=== PATIENT | female | born 1990 | race Caucasian/White ===

== ENCOUNTER → 2021-02-05 | Outpatient (CLI) | payer OTHER ==
--- NOTE | 2021-02-05 16:38 | US ---
EXAMINATION TYPE: Transabdominal DATE OF EXAM: 02/05/2021 3:09 PM COMPARISON: NONE CLINICAL HISTORY: Z36 confirm dates. EXAM PERFORMED: Transabdominal (TA) EXAM MEASUREMENTS: GESTATIONAL AGE / DATING Physician Established: Not yet established Dates by LMP (13 weeks/3 days) EDC: 08/10/2021 Dates by First Scan: No previous this is first scan Dates by Current Scan for (12 weeks/6 days) EDC: 08/14/2021 MATERNAL ANATOMY Uterus: 13.0 x 10.2 x 9.1 cm Right Ovary: 2.5 x 2.1 x 2.0 cm Left Ovary: 2.7 x 1.1 x 2.0 cm Post CDS / Adnexa: wnl Presence of free fluid: no Presence of corpus luteal cyst: yes, right ovary measuring 1.8 x 1.5 x 1.3 cm Presence of subchorionic bleed: no GESTATION / SURVEY CRL: 6.5 cm (12 weeks/6 days) Heart Rate: 166 bpm Rhythm: Normal IUP: Viable IUP Age Appropriate Anatomy Limbs: Visualized Date of LMP: 11/03/2020 Beta HcG (if available): Not available at this time Viable IUP with STEPHEN of 08/14/2021 by this exam. Cyst right ovary measuring 1.8 x 1.5 x 1.3 cm IMPRESSION: Single intrauterine with an average ultrasound gestational age of 12 weeks and 6 days. Last nodule. Gestational age is 13 weeks and 3 days. heart rate is 166 bpm. [place]-rump length is 6. 5 cm. There is a right corpus luteum cyst measuring 1.8 cm.
== END | disposition home or self-care (01) ==
LOC: RADUSWWP 14:51
PROVIDERS: ATTEND Obstetrics & Gynecology
DX: Z36.89 Encounter for other specified antenatal screening (principal); O36.8310 Maternal care for abnormalities of the fetal heart rate or rhythm, first trimester, not applicable or unspecified; Z3A.13 13 weeks gestation of pregnancy
CPT/HCPCS: 76801

== ENCOUNTER 2021-07-02 10:04 | Outpatient (CLI) | payer OTHER ==
[2021-07-02 11:18] LABS: Basophils # (A) 0.1 k/uL (0-0.2); Basophils % (A) 1 %; Eosinophils # (A) 0.2 k/uL (0-0.7); Eosinophils % (A) 2 %; HCT 38.9 % (34.0-46.0); HGB 12.5 gm/dL (11.4-16.0); Lymphocytes # (A) 1.2 k/uL (1.0-4.8); Lymphocytes % (A) 14 %; MCH 28.5 pg (25.0-35.0); MCHC 32.2 g/dL (31.0-37.0); MCV 88.6 fL (80.0-100.0); Mean Platelet Volume 7.2; Monocytes # (A) 0.7 k/uL (0-1.0); Monocytes % (A) 8 %; Neutrophils # (A) 6.3 k/uL (1.3-7.7); Neutrophils % (A) 73 %; Platelet Count 337 k/uL (150-450); RBC 4.39 m/uL (3.80-5.40); RDW 13.5 % (11.5-15.5); WBC 8.7 k/uL (3.8-10.6)
[2021-07-02 11:23] LABS: Appearance,Urine Clear (Clear); Bilirubin,Urine Negative (Negative); Blood,Urine Negative (Negative); Color,Urine Light Yellow; Glucose,Urine (UA) Negative (Negative); Ketones,Urine Negative (Negative); Leukocyte Esterase,Urine Negative (Negative); Nitrite,Urine Negative (Negative); PH, Urine 7.5 (5.0-8.0); Protein,Urine Negative (Negative); Specific Gravity,Urine 1.009 (1.001-1.035); Urobilinogen,Urine <2.0 mg/dL (<2.0)
[2021-07-02 11:33] LABS: Creatinine,Urine Random 51.3 mg/dL; Protein/Creatinine Ratio,Urine 0.195
[2021-07-02 11:34] LABS: ALT 15 U/L (4-34); AST 20 U/L (14-36); African American GFR (CKD) >90 (>60 ml/min/1.73 sqM); Blood Urea Nitrogen 4 mg/dL (7-17); LDH 409 U/L (313-618); Non-African American GFR(CKD) >90 (>60 ml/min/1.73 sqM); Uric Acid 3.2 mg/dL (3.7-7.4)
[2021-07-02 12:04] VITALS: BP 160/69; PULSE 96; RESP 18; TEMP 97
--- NOTE | 2021-07-14 07:20 | P.MSEPDOC ---
Presenting Problems - Arrival Data Date of Arrival on Unit: 07/02/21 Time of Arrival on Unit: 10:00 Mode of Transport: Ambulatory - Complaint OB-Reason for Admission/Chief Complaint: NST Medical History - Information : 4 Para: 2 Term: 2 : 0 Abortions: Spontaneous or Elective: 1 Number of Living Children: 2 - Gestational Age Gestational Age by STEPHEN (wks/days): 34 Weeks and 3 Days - History Comment: pt is covid positive Review of Systems - Review of Systems Constitutional: No problems Breast: No problems ENT: No problems Cardiovascular: No problems Respiratory: No problems Gastrointestinal: No problems Genitourinary: No problems Musculoskeletal: No problems Neurological: No problems Skin: No problems Vital Signs - Temperature Temperature: 97.0 F Temperature Source: Temporal Artery Scan - Pulse Right Brachial Pulse Rate: 96 Pulse Assessment Method: Automatic Cuff - Respirations Respiratory Rate: 18 Oxygen Delivery Method: Room Air - Blood Pressure Right Arm Blood Pressure: 160/69 Blood Pressure Mean: 99 Blood Pressure Source: Automatic Cuff Medical Screen Scoring - Assessment - Baby A Baseline FHR: 145 Heart Rate - NICHD Category: Category I (Normal) NST: Reactive Physician Notification - Physician Notified Physician Notified Date: 07/02/21 Physician Notified Time: 11:50 Physician: Sil Marie New Order Received: Yes - Notification Comment Comment: PIH labs done, report given to Dr. Marie, orders to discharge home, will follow up on Monday for BPP and NST Maternal Triage Index - Maternal Triage Index Presenting for scheduled procedure w/no complaint: Yes - Stat/Priority 1 Criteria Met for Priority 1: pt presented for NST, but had elevated bp's, orders for PIH workup given, pt is 34 3/7 ga, no PIH symptoms - Scheduled/Requesting Priority 5 Scheduled/Requesting Priority 5: No Disposition - Disposition OB Disposition: Triage, LDRP Suite, Written follow up instructions reviewed Discharge Date: 07/02/21 Discharge Time: 11:54 I agree with the RN Medical Screening Exam: Yes Case reviewed; plan agreed upon as documented in EMR&OBIX.: Yes Diagnosis: GESTATIONAL HTN W/O SIGNIFICANT PROTEINURIA, THIRD TRIMESTER
== END 2021-07-02 11:54 | disposition home or self-care (01) ==
LOC: FBPOP 10:04
PROVIDERS: ATTEND Obstetrics & Gynecology
DX: Z36.83 Encounter for fetal screening for congenital cardiac abnormalities (principal)
CPT/HCPCS: 59025; 82570; 84156; 82565; 83615; 84450; 84460; 84520; 84550; 85025; 81003; G0463; 99215

== ENCOUNTER 2021-07-05 10:05 | Outpatient (CLI) | payer OTHER ==
--- NOTE | 2021-07-05 10:59 | US ---
EXAMINATION TYPE: US OB BPP wo non-stress DATE OF EXAM: 07/05/2021 COMPARISON: CLINICAL HISTORY: Small for gestation. EXAM PERFORMED: Transabdominal (TA) BPP PARAMETERS: PRESENTATION: Vertex HEART RATE: 158 bpm RHYTHM: Normal PRUDENCIO: 13.4cm DIAPHRAGM IMAGED: yes BPP SCORIN. Breathin (1 episode of breathing of 30 second duration in 30 minutes of scanning time) 2. Movement: 2 (at least 3 discrete body movements in 30 minutes) 3. Tone: 2 (1 episode of active flexion/extension of limb) 4. PRUDENCIO: 2 (PRUDENCIO index > 5cm) TOTAL SCORE: 8 / 8
[2021-07-05 11:23] VITALS: BP 124/78; PULSE 80; RESP 18; TEMP 96.4
--- NOTE | 2021-07-05 18:56 | P.MSEPDOC ---
Presenting Problems - Arrival Data Date of Arrival on Unit: 07/05/21 Time of Arrival on Unit: 10:10 Mode of Transport: Portable - Complaint OB-Reason for Admission/Chief Complaint: NST Comment: NST and BPP, covid + Medical History - Information : 4 Para: 2 Term: 2 : 0 Abortions: Spontaneous or Elective: 1 Number of Living Children: 2 - Gestational Age Gestational Age by STEPHEN (wks/days): 34 Weeks and 6 Days - History Complications: Prior Comment: Covid + 07/02/2021 Review of Systems - Review of Systems Constitutional: No problems Breast: No problems ENT: No problems Cardiovascular: No problems Respiratory: No problems Gastrointestinal: No problems Genitourinary: No problems Musculoskeletal: No problems Neurological: No problems Skin: No problems Comment: Loss of taste and smell Vital Signs - Temperature Temperature: 96.4 F Temperature Source: Temporal Artery Scan - Pulse Right Sitting Brachial Pulse Rate: 80 Pulse Assessment Method: Automatic Cuff - Respirations Respiratory Rate: 18 Oxygen Delivery Method: Room Air O2 Sat by Pulse Oximetry: 98 - Blood Pressure Right Arm Sitting Blood Pressure: 124/78 Blood Pressure Mean: 93 Blood Pressure Source: Automatic Cuff Medical Screen Scoring - Assessment - Baby A Baseline FHR: 140 Heart Rate - NICHD Category: Category I (Normal) NST: Reactive Physician Notification - Physician Notified Physician Notified Date: 07/05/21 Physician Notified Time: 11:15 Physician: Henry Morrison New Order Received: Yes - Notification Comment Comment: ok to dc home. Return monday for NST/BPP. Maternal Triage Index - Maternal Triage Index Presenting for scheduled procedure w/no complaint: Yes - Scheduled/Requesting Priority 5 Scheduled/Requesting Priority 5: Yes Criteria Met for Priority 5: NST/BPP with order per Esperanza Powers + Disposition - Disposition OB Disposition: Discharge to home Discharge Date: 07/05/21 Discharge Time: 11:20 I agree with the RN Medical Screening Exam: Yes Case reviewed; plan agreed upon as documented in EMR&OBIX.: Yes Diagnosis: RELATED CONDITIONS, UNSPECIFIED, THIRD TRIMESTER
== END 2021-07-05 11:20 | disposition home or self-care (01) ==
LOC: FBPOP 10:05
PROVIDERS: ATTEND Obstetrics & Gynecology
DX: O26.93 Pregnancy related conditions, unspecified, third trimester (principal); Z3A.34 34 weeks gestation of pregnancy
CPT/HCPCS: 59025; 76819

== ENCOUNTER 2021-07-09 10:09 | Outpatient (CLI) | payer OTHER ==
--- NOTE | 2021-07-10 09:08 | P.MSEPDOC ---
Presenting Problems - Arrival Data Date of Arrival on Unit: 07/09/21 Time of Arrival on Unit: 10:09 Mode of Transport: Ambulatory - Complaint OB-Reason for Admission/Chief Complaint: NST Comment: pt presents to triage for nst per written order by Dr. Morrison, pt was positive for covid on 06/30/21, Medical History - Gestational Age Gestational Age by STEPHEN (wks/days): 35 Weeks and 3 Days - History Complications: Prior Review of Systems - Review of Systems Constitutional: No problems Breast: No problems ENT: No problems Cardiovascular: No problems Respiratory: No problems Gastrointestinal: No problems Genitourinary: No problems Musculoskeletal: No problems Neurological: No problems Skin: No problems Medical Screen Scoring - Assessment - Baby A Baseline FHR: 150 Heart Rate - NICHD Category: Category I (Normal) NST: Reactive Physician Notification - Physician Notified Physician Notified Date: 07/09/21 Physician Notified Time: 11:05 Physician: Ryan Dick Order Received: Yes Maternal Triage Index - Maternal Triage Index Presenting for scheduled procedure w/no complaint: Yes - Scheduled/Requesting Priority 5 Scheduled/Requesting Priority 5: Yes Criteria Met for Priority 5: pt 35 4/7 week ga, had written orders for nst per Dr. Morrison Disposition - Disposition OB Disposition: Triage, Discharge to home, Written follow up instructions reviewed Discharge Date: 07/09/21 Discharge Time: 11:05 I agree with the RN Medical Screening Exam: Yes Case reviewed; plan agreed upon as documented in EMR&OBIX.: Yes Diagnosis: RELATED CONDITIONS, UNSPECIFIED, SECOND TRIMESTER
== END 2021-07-09 11:05 | disposition home or self-care (01) ==
LOC: FBPOP 10:09
PROVIDERS: ATTEND Obstetrics & Gynecology
DX: O26.90 Pregnancy related conditions, unspecified, unspecified trimester (principal); Z3A.35 35 weeks gestation of pregnancy
CPT/HCPCS: 59025

== ENCOUNTER 2021-07-12 09:55 | Outpatient (CLI) | payer OTHER ==
[2021-07-12 10:56] LABS: Appearance,Urine Cloudy (Clear); Bacteria,Urine Moderate /hpf; Bilirubin,Urine Negative (Negative); Blood,Urine Negative (Negative); Color,Urine Yellow; Glucose,Urine (UA) Negative (Negative); Ketones,Urine Negative (Negative); Leukocyte Esterase,Urine Small (Negative); Mucus,Urine Moderate /hpf; Nitrite,Urine Negative (Negative); Protein,Urine Trace (Negative); Specific Gravity,Urine 1.024 (1.001-1.035); Squamous Epithelial Cell,Urine 5 /hpf (0-4); Urobilinogen,Urine <2.0 mg/dL (<2.0); WBC,Urine 15 /hpf (0-5)
[2021-07-12 10:57] LABS: Basophils % (A) 0 %; Eosinophils # (A) 0.1 k/uL (0-0.7); Eosinophils % (A) 1 %; HCT 35.9 % (34.0-46.0); HGB 12.2 gm/dL (11.4-16.0); Lymphocytes # (A) 1.6 k/uL (1.0-4.8); Lymphocytes % (A) 14 %; MCH 29.5 pg (25.0-35.0); MCV 86.6 fL (80.0-100.0); Mean Platelet Volume 7.2; Monocytes # (A) 0.8 k/uL (0-1.0); Monocytes % (A) 7 %; Neutrophils # (A) 8.9 k/uL (1.3-7.7); Neutrophils % (A) 77 %; Platelet Count 421 k/uL (150-450); RBC 4.15 m/uL (3.80-5.40); RDW 13.8 % (11.5-15.5); WBC 11.6 k/uL (3.8-10.6)
[2021-07-12 10:58] LABS: Creatinine,Urine Random 166.9 mg/dL
[2021-07-12 11:08] LABS: INR 0.9 (<1.2); Partial Thromboplastin Time 22.3 sec (22.0-30.0); Prothrombin Time 9.8 sec (9.0-12.0)
[2021-07-12 11:11] LABS: ALT 11 U/L (4-34); AST 16 U/L (14-36); African American GFR (CKD) >90 (>60 ml/min/1.73 sqM); Blood Urea Nitrogen 5 mg/dL (7-17); LDH 322 U/L (313-618); Non-African American GFR(CKD) >90 (>60 ml/min/1.73 sqM); Uric Acid 3.3 mg/dL (3.7-7.4)
--- NOTE | 2021-07-12 11:52 | US ---
EXAMINATION TYPE: US OB >= 14 wk fetus DATE OF EXAM: 07/12/2021 COMPARISON: None CLINICAL HISTORY: prudencio/growth, maternal high bp TECHNIQUE: OBTA GESTATIONAL AGE / DATING Physician Established: ( 35 weeks/6 days) EDC: 08/10/2021 Dates by LMP: (35 weeks/6 days) EDC: 08/10/2021 Dates by First Scan: (35weeks/2 days) EDC: 08/14/2021 Dates by Current Scan: (33 weeks/3 days) EDC: 08/27/2021 SURVEY IUP: Single PLACENTA: Fundal PREVIA: No Previa PRUDENCIO: 18.7 cm Normal CERVICAL LENGTH (transabdominal: norm > 3.0cm): shadowed from baby head and nondistended bladder BIOMETRY PRESENTATION: Vertex LIE: Longitudinal BPD: 8.4 cm 34 weeks / 0 days HC: 31.2 cm 35 weeks / 0 days AC: 26.9 cm 31 weeks / 1 days FL: 6.5 cm 33 weeks / 3 days ESTIMATED WEIGHT IN GRAMS: 1966 grams ESTIMATED WEIGHT IN LBS/OZ: 4 lbs. 5 oz. WEIGHT PERCENTAGE BASED ON ESTABLISHED DATES: 2% HC/AC: 1.1 Normal FL/AC: 24 Normal HEART RATE: 149 bpm RHYTHM: Normal Survey is limited. IMPRESSION: Single viable intrauterine corresponding to an ultrasound age 33 weeks 3 days with estimate d date of delivery by today's exam 08/27/2021
--- NOTE | 2021-07-12 11:55 | US ---
EXAMINATION TYPE: US OB BPP wo non-stress DATE OF EXAM: 07/12/2021 COMPARISON: NONE CLINICAL HISTORY: prudencio/growth. maternal high bp EXAM PERFORMED: Transabdominal (TA) BPP PARAMETERS: PRESENTATION: Vertex LIE: Longitudinal?? HEART RATE: 158bpm RHYTHM: Normal PRUDENCIO: 17.1 DIAPHRAGM IMAGED: yes BPP SCORIN. Breathin (1 episode of breathing of 30 second duration in 30 minutes of scanning time) 2. Movement: 2 (at least 3 discrete body movements in 30 minutes) 3. Tone: 2 (1 episode of active flexion/extension of limb) 4. PRUDENCIO: 2 (PRUDENCIO index > 5cm) TOTAL SCORE: 8 / 8
[2021-07-12 12:40] VITALS: BP 138/78; PULSE 99; RESP 16; TEMP 98.7
--- NOTE | 2021-07-13 06:17 | P.MSEPDOC ---
Presenting Problems - Arrival Data Date of Arrival on Unit: 07/12/21 Time of Arrival on Unit: 10:15 Mode of Transport: Ambulatory - Complaint OB-Reason for Admission/Chief Complaint: NST, PIH, Other Comment: small for dates , history of covid oct Medical History - Information : 3 Para: 2 Term: 2 : 0 Abortions: Spontaneous or Elective: 0 Number of Living Children: 2 - Gestational Age Gestational Age by STEPHEN (wks/days): 35 Weeks and 6 Days Review of Systems - Review of Systems Constitutional: No problems Breast: No problems ENT: No problems Cardiovascular: No problems Respiratory: No problems Gastrointestinal: No problems Genitourinary: No problems Musculoskeletal: No problems Neurological: No problems Skin: No problems Comment: sent from office with orders Vital Signs - Temperature Temperature: 98.7 F Temperature Source: Temporal Artery Scan - Pulse Right Radial Pulse Rate: 99 Pulse Assessment Method: Automatic Cuff - Respirations Respiratory Rate: 16 Oxygen Delivery Method: Room Air O2 Sat by Pulse Oximetry: 99 - Blood Pressure Right Arm Blood Pressure: 138/78 Blood Pressure Mean: 98 Blood Pressure Source: Automatic Cuff Medical Screen Scoring - Assessment - Baby A Baseline FHR: 145 Heart Rate - NICHD Category: Category I (Normal) Physician Notification - Physician Notified Physician Notified Date: 07/12/21 Physician Notified Time: 10:15 Physician: Henry Morrison Maternal Triage Index - Scheduled/Requesting Priority 5 Scheduled/Requesting Priority 5: Yes Criteria Met for Priority 5: bpp,u/s ,nst, pih work up sent from office Disposition - Disposition OB Disposition: Discharge to home, Written follow up instructions reviewed Discharge Date: 07/12/21 Discharge Time: 12:00 I agree with the RN Medical Screening Exam: Yes Case reviewed; plan agreed upon as documented in EMR&OBIX.: Yes Diagnosis: GESTATIONAL HTN W/O SIGNIFICANT PROTEINURIA, THIRD TRIMESTER (Patient presents from the office for evaluation of gestational hypertension. Evaluation here shows no evidence of reproducible hypertension. No evidence of preeclampsia. Patient's baby is at the 2nd percentile and I did discuss with maternal- medicine and will see her in the morning for umbilical Dopplers and further evaluation.)
== END 2021-07-12 12:00 | disposition home or self-care (01) ==
LOC: FBPOP 09:55
PROVIDERS: ATTEND Obstetrics & Gynecology
DX: O13.3 Gestational [pregnancy-induced] hypertension without significant proteinuria, third trimester (principal); Z3A.35 35 weeks gestation of pregnancy
CPT/HCPCS: 59025; 82570; 84156; 82565; 83615; 84450; 84460; 84520; 84550; 85025; 85610; 85730; 81001; 76805; 76819; G0463; 99215

== ENCOUNTER 2021-07-21 05:45 | Inpatient (IN) | payer OTHER ==
--- NOTE | 2021-07-20 06:56 | P.HPOB ---
History of Present Illness H&P Date: 07/20/21 Chief Complaint: Repeat and tubal ligation for intrauterine growth restriction This patient is a pleasant 31-year-old 4 para 2 female estimated date of confinement 08/10/2021 estimated gestational age 37 weeks who presents for repeat section and also requesting permanent sterilization. Patient is being delivered at 37 weeks secondary to severe IUGR. Patient's care is such that she has a history of IUGR with her last . Patient's had growth ultrasounds this and an earlier ultrasound showed a growth percentile the 14th percentile subsequent follow-up ultrasound showed her to be at the 2nd percentile at which time I referred her to [facility] again and there are ultrasound showed at the 5th percentile with normal Dopplers and they recommended to proceed with delivery at 37 weeks. A she has had a previous section for IUGR and a triple nuchal cord and has requested repeat also wishes to have a tubal ligation the time of the surgery. She also has a benign in her thigh skin lesion which she wishes to have removed at the time of surgery as well. care has also been complicated by the development of COVID at approximately 36 weeks. Patient was vaccinated and did not have any symptoms from her COVID. Review of Systems Genitourinary: Reports Menstruation: Reports amenorrhea Past Medical History Past Medical History: No Reported History History of Any Multi-Drug Resistant Organisms: None Reported Past Surgical History: Section Additional Past Surgical History / Comment(s): Nose surgery- 1991 Past Anesthesia/Blood Transfusion Reactions: No Reported Reaction Past Psychological History: No Psychological Hx Reported Smoking Status: Never smoker Past Alcohol Use History: None Reported Past Drug Use History: None Reported - Past Family History Mother Family Medical History: No Reported History Medications and Allergies Home Medications Medication Instructions Recorded Confirmed Type Pnv,Calcium 72/Iron/Folic Acid 1 tab PO DAILY 08/11/16 07/12/21 History [ Plus Tablet] Allergies Allergy/AdvReac Type Severity Reaction Status Date / Time No Known Allergies Allergy Verified 07/12/21 10:05 Exam - OBG Physical Exam Abdomen: bowel sounds normal, no diffuse tenderness, no bruit present, no guarding noted, no hepatomegaly, no splenomegaly, no mass Vulva: both: normal Vagina: normal moisture, no discharge Cervix: no lesion, no discharge Uterus: enlarged (Fundal height is 37 cm) Results blood work shows she is B+, rubella immune, RPR nonreactive, hepatitis B is negative, HIV is nonreactive, group B strep was, most recent ultrasound on July 13 showed estimated weight to be 4 lbs. 8 oz. which is the 5th percentile. Assessment and Plan Assessment: This is a pleasant 31-year-old 4 para 2 female 37 weeks gestation with severe intrauterine growth restriction, previous section desires repeat, and also requesting permanent sterilization. Plan is repeat low transverse section and bilateral partial salpingectomy. Patient I have discussed the fact that a tubal ligation is considered permanent however there is a failure rate of less than 5 per thousand procedures done. She also understands that surgery itself and apparently has risks including risks of infection, bleeding, possible injury bowel, bladder, vessels, and/or other organs. All the patient's questions are answered and a written consent is obtained. (1) 37 weeks gestation of Status: Acute Code(s): Z3A.37 - 37 WEEKS GESTATION OF SNOMED Code(s): 48535529 (2) Previous delivery affecting Status: Acute Code(s): O34.219 - MATERNAL CARE FOR UNSP TYPE SCAR FROM PREVIOUS DEL SNOMED Code(s): 061338645 (3) Family planning Status: Acute Code(s): Z30.09 - ENCOUNTER FOR OTH GENERAL CNSL AND ADVICE ON CONTRACEPTION SNOMED Code(s): 686712684 (4) Group B streptococcal carriage complicating Status: Acute Code(s): O99.820 - STREPTOCOCCUS B CARRIER STATE COMPLICATING SNOMED Code(s): 653546062259135 (5) IUGR (intrauterine growth restriction) Status: Acute Code(s): TLV9811 - SNOMED Code(s): 31316124
[2021-07-21] MEDS ORDERED: CITRIC ACID-SODIUM CITRATE 15 ML CUP PO ONE (06:23)
[2021-07-21] MEDS ORDERED: LACTATED RINGERS 1,000 ML IV ONE (06:23)
[2021-07-21] MEDS ORDERED: LACTATED RINGERS 1,000 ML IV SCH (06:23)
[2021-07-21 06:42] LABS: Basophils % (A) 0 %; Eosinophils # (A) 0.1 k/uL (0-0.7); Eosinophils % (A) 1 %; HCT 37.3 % (34.0-46.0); HGB 12.8 gm/dL (11.4-16.0); Lymphocytes # (A) 1.7 k/uL (1.0-4.8); Lymphocytes % (A) 17 %; MCH 29.6 pg (25.0-35.0); MCHC 34.3 g/dL (31.0-37.0); MCV 86.3 fL (80.0-100.0); Monocytes # (A) 0.7 k/uL (0-1.0); Monocytes % (A) 7 %; Neutrophils # (A) 7.2 k/uL (1.3-7.7); Neutrophils % (A) 72 %; Platelet Count 427 k/uL (150-450); RBC 4.32 m/uL (3.80-5.40); RDW 13.9 % (11.5-15.5)
[2021-07-21] MEDS ORDERED: fentaNYL (PF) 50 MCG/ML 2 ML AMP ONE (07:52)
[2021-07-21] MEDS ORDERED: OXYTOCIN 30 UNITS/500 ML NS BAG IV ONE (07:52)
[2021-07-21] MEDS ORDERED: NALBUPHINE 10 MG/ML (1 ML AMP) ONE (07:52)
[2021-07-21] MEDS ORDERED: KETOROLAC 15 MG/ML 1 ML VIAL ONE (07:52)
[2021-07-21] MEDS ORDERED: MORPHINE SULFATE (PF) 0.3 MG/0.3 ML SYR ONE (07:52)
[2021-07-21] MEDS ORDERED: PROPOFOL 10 MG/ML 20 ML VIAL IV ONE (07:52)
--- NOTE | 2021-07-21 08:47 | P.OP ---
Date of Procedure: 07/21/21 Preoperative Diagnosis: #1: 37-one sevenths week intrauterine . #2: Previous section desires repeat. #3: Multi parity desires permanent sterilization. #4: Severe intrauterine growth restriction. #5: Benign left inner thigh lesion Postoperative Diagnosis: Same, nuchal cord 2 Procedure(s) Performed: #1: Repeat low transverse section. #2: Bilateral partial salpingectomy. #3: Excision of left inner thigh lesion Anesthesia: spinal Surgeon: Henry Morrison Broom Machine Operator #1: Miladis Appiah Estimated Blood Loss (ml): 500 Pathology: other (Center, and bilateral fallopian tube segments) Condition: stable Disposition: floor Indications for Procedure: Please see dictated H&P for intimate details of this patient's admission. Brief summary pleasant 31-year-old 4 para 2 female 37 and one sevenths week with known severe intrauterine growth restriction recommended delivery per [facility]. Patient had a previous section desires repeat and also requesting permanent sterilization. She also has a benign inner thigh lesion that we discussed removing time of surgery. Patient stands a tubal ligation is permanent, has a failure rate however 3-4 per thousand procedures done. She understands surgery itself and apparently has risks and risks of infection, bleeding, possible injury to bowel, bladder, vessels, and other organs. All the patient's questions are answered written consent is obtained. Operative Findings: This is a vigorous viable female infant Apgars 7 and 9 delivery time is 0807 hrs. If it appeared growth restricted and had a double nuchal cord which was loose. Description of Procedure: This patient has a Agudelo catheter placed to straight drain. She is subsequently taken to the operating room where after the appropriate timeout a spinal anesthetic is administered without incident. With an adequate level of anesthesia she has abdominal prep and drape. With adequate level of anesthesia, scalpels taken the previous Pfannenstiel incision is incised. A second scalpel is taken down the fascia the fascia scored with a knife. Fascial incision extended bilaterally using the Haji scissors. Fascia is dissected off the rectus muscles sharply. Rectus muscles are the peritoneum identified and entered sharply. Peritoneal incision extended superior and inferior without difficulty. Bladder blade is placed. Bladder peritoneum was then sharply dissected off the lower uterine segment. Scalpels and taken a low transverse uterine incision is made. Using a hemostat I enter the uterine cavity bluntly is loss of clear fluid. This incision extended bluntly the 's head is guided through the incision with fundal pressure. Mouth and nares are bulb suctioned. She did have a double nuchal cord which is easily reduced. With more fundal pressure we deliver the rest this 's body. This is a vigorous viable female infant Apgars are 7 and 9 delivery time is 0807 hrs. After delivery of the the umbilical cord is doubly clamped and cut and infant is handed off to the nurses in attendance with the veterinarian assistant. The placenta is then manually extracted intact. The uterus is then externalized. Uterine incision marking [place] clamps and closed in 0 Vicryl running locked fashion 2 layers. Excellent hemostasis is noted. Bladder peritoneum was then reapproximated using 3-0 Vicryl. Then turned my attention to the left fallopian tube approximately 4 cm from the cornual insertion a small window made to the mesial salpinx with Bovie cautery. Using a 2-0 silk I doubly ligate a 2 cm segment of the tube. This is transected and cauterized and sent off to pathology. Similar technique is done on the right side with similar results. Excess fluid is removed from the abdomen and pelvis. Uterus placed back into the abdomen. Vital peritoneum was then closed using 0 Vicryl running fashion. Rectus muscles are reapproximated in 0 Vicryl interrupted fashion. Fascial incision then closed using 0 PDS. Fascial incision is intact and hemostatic. Subcutaneous tissues and closed using a 3-0 Vicryl. Skin is and closed using breezy. Sterile dressing is applied. Down below she had a proximally 1 cm benign left inner thigh lesion. This is excised with a scalpel and then hemostasis is achieved with 2 interrupted sutures of 3-0 Vicryl. Again a sterile dressing is applied. At this time ARE c orrect 3. There are no complications. Infant is going to the nursery for observation and mother was birthing suite in satisfactory condition.
[2021-07-21] MEDS ORDERED: METOCLOPRAMIDE 5 MG/ML 2 ML VIAL IVP PRN (09:03)
[2021-07-21] MEDS ORDERED: ZOLPIDEM 5 MG TAB PO PRN (09:03)
[2021-07-21] MEDS ORDERED: OXYTOCIN 30 UNITS/500 ML NS 30 UNIT in SALINE 1 500ML.BAG IV SCH (09:03)
[2021-07-21] MEDS ORDERED: diphenhydrAMINE 25 MG CAP PO PRN (09:03)
[2021-07-21] MEDS ORDERED: NALOXONE 0.4 MG/ML 1 ML VIAL IV PRN ×2 (09:03→13:11)
[2021-07-21] MEDS ORDERED: LANOLIN CREAM 5 GM TUBE TOPICAL PRN (09:03)
[2021-07-21] MEDS ORDERED: ONDANSETRON 4 MG/2 ML VIAL IVP PRN (09:03)
[2021-07-21] MEDS: diphenhydrAMINE 50 MG/ML 1 ML VIAL IVP PRN ×2 (10:37→22:16)
[2021-07-21] MEDS: ACETAMINOPHEN TAB 500 MG TAB PO PRN ×2 (10:40→22:16)
[2021-07-21] MEDS ORDERED: HYDROmorphone 0.5 MG/0.5 ML SYRINGE IVP PRN (13:11)
[2021-07-21] MEDS ORDERED: NALBUPHINE 10 MG/ML (1 ML AMP) IV PRN (13:11)
[2021-07-21] MEDS ORDERED: KETOROLAC 15 MG/ML 1 ML VIAL IVP PRN (13:11)
[2021-07-21] MEDS ORDERED: KETOROLAC 30 MG/ML 1 ML VIAL IVP PRN (13:18)
[2021-07-21] MEDS: KETOROLAC 30 MG/ML 1 ML VIAL IVP SCH (15:41)
[2021-07-21] MEDS: SENNOSIDES-DOCUSATE SODIUM 1 EACH TAB PO SCH ×2 (19:26→22:17)
[2021-07-21] MEDS: LACTATED RINGERS 1,000 ML IV SCH (22:17)
[2021-07-22] MEDS: KETOROLAC 30 MG/ML 1 ML VIAL IVP SCH ×3 (00:37→12:02)
[2021-07-22] MEDS: LACTATED RINGERS 1,000 ML IV SCH (00:38)
--- NOTE | 2021-07-22 05:26 | P.PNOBGPC ---
Subjective - Subjective Patient reports: Reports appetite normal, Reports voiding normally, Reports pain well controlled, Reports ambulating normally : doing well Objective - Vital Signs Latest vital signs: Vital Signs Temp Pulse Resp BP Pulse Ox 07/22/21 04:00 97.6 F 134 H 16 102/66 07/22/21 00:00 98.1 F 77 18 106/55 07/21/21 20:00 98 F 76 18 106/67 07/21/21 18:00 15 07/21/21 16:11 16 07/21/21 16:00 97.9 F 71 16 128/79 98 07/21/21 14:15 16 07/21/21 12:40 97.3 F L 79 15 112/77 98 07/21/21 10:40 97.5 F L 73 15 128/76 07/21/21 10:10 72 15 127/75 07/21/21 09:40 73 15 123/69 98 07/21/21 09:25 69 15 129/69 100 07/21/21 09:10 74 15 113/64 100 07/21/21 09:03 100 07/21/21 08:55 80 15 112/61 98 07/21/21 08:40 97.3 F L 90 15 112/64 100 07/21/21 06:11 97.0 F L 113 H 16 133/82 Intake and Output 07/21/21 07/21/21 07/22/21 14:59 22:59 06:59 Output Total 150 550 Balance -150 -550 Output: Urine 150 550 Uretheral (Agudelo) 400 Other: Voiding Method Indwelling Catheter Indwelling Catheter # Voids 1 2 - Exam Lungs: bilateral: normal Chest: Normal S1, Normal S2 Extremities: Present: normal Abdomen: Present: normal appearance, soft. Absent: distention, tenderness Incision: Present: normal, dry, intact Uterus: Present: normal, firm Assessment and Plan Assessment: Postoperative day #1. Patient is resting without complaints. Vital signs are stable and she is afebrile. Her incision is intact and dry. Uterus is firm nontender she's having normal lochia. CBC pending at time of this dictation. Plan is to encourage ambulation, advance her diet, and check a CBC. (1) 37 weeks gestation of Current Visit: No Status: Acute Code(s): Z3A.37 - 37 WEEKS GESTATION OF SNOMED Code(s): 70728987 (2) Previous delivery affecting Current Visit: No Status: Acute Code(s): O34.219 - MATERNAL CARE FOR UNSP TYPE SCAR FROM PREVIOUS DEL SNOMED Code(s): 618563667 (3) Family planning Current Visit: No Status: Acute Code(s): Z30.09 - ENCOUNTER FOR OTH GENERAL CNSL AND ADVICE ON CONTRACEPTION SNOMED Code(s): 946307616 (4) Group B streptococcal carriage complicating Current Visit: No Status: Acute Code(s): O99.820 - STREPTOCOCCUS B CARRIER STATE COMPLICATING SNOMED Code(s): 787886624300307 (5) IUGR (intrauterine growth restriction) Current Visit: No Status: Acute Code(s): LIE0130 - SNOMED Code(s): 15695618
[2021-07-22 06:26] LABS: Basophils % (A) 0 %; Eosinophils # (A) 0.2 k/uL (0-0.7); Eosinophils % (A) 2 %; HCT 38.2 % (34.0-46.0); HGB 12.5 gm/dL (11.4-16.0); Lymphocytes # (A) 1.9 k/uL (1.0-4.8); Lymphocytes % (A) 17 %; MCH 28.9 pg (25.0-35.0); MCHC 32.6 g/dL (31.0-37.0); MCV 88.6 fL (80.0-100.0); Mean Platelet Volume 7.1; Monocytes # (A) 0.7 k/uL (0-1.0); Monocytes % (A) 7 %; Neutrophils % (A) 72 %; Platelet Count 420 k/uL (150-450); RBC 4.31 m/uL (3.80-5.40); RDW 13.8 % (11.5-15.5)
[2021-07-22] MEDS: ACETAMINOPHEN TAB 500 MG TAB PO PRN ×3 (07:54→19:38)
[2021-07-22] MEDS: SENNOSIDES-DOCUSATE SODIUM 1 EACH TAB PO SCH ×2 (07:56→19:38)
--- NOTE | 2021-07-22 09:17 | P.PN ---
Progress Note - Text Progress Note Date: 07/22/21 Ms. Molina is a 31 -year-old female had a history of under spinal an algesia with Astramorph 300 g for postop pain. Today patient is comfortable sitting in her bed. Today patient rated her pain level 2-3 out of 10 in severity. Denied any fever, drowsiness, confusion. Denied any weakness, tingling sensation in her lower extremities. Denied any bowel or bladder problems. Moving all extremities without any difficulty. Able to walk without any difficulties. Vitals: Hemodynamically stable Continue oral pain medication as per primary team.
[2021-07-22] MEDS: IBUPROFEN 600 MG TAB PO PRN ×3 (10:53→22:01)
[2021-07-23] MEDS: ACETAMINOPHEN TAB 500 MG TAB PO PRN ×4 (01:17→22:21)
[2021-07-23] MEDS: IBUPROFEN 600 MG TAB PO PRN ×3 (04:26→19:27)
--- NOTE | 2021-07-23 05:41 | P.PNOBGPC ---
Subjective - Subjective Patient reports: Reports appetite normal, Reports voiding normally, Reports pain well controlled, Reports ambulating normally : doing well, in NICU Objective - Vital Signs Latest vital signs: Vital Signs Temp Pulse Resp BP Pulse Ox 07/22/21 22:15 97.8 F 66 18 128/78 98 07/22/21 15:57 98.3 F 63 16 133/73 07/22/21 07:32 98.0 F 73 15 117/77 Intake and Output 07/22/21 07/22/21 07/23/21 14:59 22:59 06:59 Intake Total 240 Balance 240 Intake: Oral 240 Other: # Voids 1 2 - Exam Lungs: bilateral: normal Chest: Normal S1, Normal S2 Extremities: Present: normal Abdomen: Present: normal appearance, soft. Absent: distention, tenderness Incision: Present: normal, dry, intact Uterus: Present: normal, firm - Labs Labs: Abnormal Lab Results - Last 24 Hours (Table) 07/22/21 Range/Units 05:29 WBC 11.0 H (3.8-10.6) k/uL Neutrophils # 8.0 H (1.3-7.7) k/uL Assessment and Plan Assessment: Postoperative day #2. Patient is resting without complaints. Vital signs are stable she is afebrile. Her incision is intact and dry. Uterus is firm n ontender. She is ambulating, urinating, and tolerating regular diet. Baby is still in special care secondary to feeding issues. Plan today is to continue routine postoperative care go home in 1-2 days. (1) 37 weeks gestation of Current Visit: No Status: Acute Code(s): Z3A.37 - 37 WEEKS GESTATION OF SNOMED Code(s): 04505719 (2) Previous delivery affecting Current Visit: No Status: Acute Code(s): O34.219 - MATERNAL CARE FOR UNSP TYPE SCAR FROM PREVIOUS DEL SNOMED Code(s): 432832030 (3) Family planning Current Visit: No Status: Acute Code(s): Z30.09 - ENCOUNTER FOR OTH GENERAL CNSL AND ADVICE ON CONTRACEPTION SNOMED Code(s): 986619344 (4) Group B streptococcal carriage complicating Current Visit: No Status: Acute Code(s): O99.820 - STREPTOCOCCUS B CARRIER STATE COMPLICATING SNOMED Code(s): 435377033466926 (5) IUGR (intrauterine growth restriction) Current Visit: No Status: Acute Code(s): ZHM6870 - SNOMED Code(s): 10739214
[2021-07-23] MEDS: SENNOSIDES-DOCUSATE SODIUM 1 EACH TAB PO SCH ×2 (08:11→19:28)
[2021-07-23] MEDS: SIMETHICONE 80 MG CHEWABLE PO PRN (08:15)
[2021-07-23 10:24] VITALS: RESP 16
[2021-07-24] MEDS: IBUPROFEN 600 MG TAB PO PRN ×2 (01:10→06:16)
[2021-07-24] MEDS: ACETAMINOPHEN TAB 500 MG TAB PO PRN ×2 (04:02→09:33)
[2021-07-24] MEDS: SIMETHICONE 80 MG CHEWABLE PO PRN (04:59)
--- NOTE | 2021-07-24 09:05 | P.PNOBGPC ---
Subjective - Subjective Principal diagnosis: Status post repeat low transverse POD #3 Interval history: Patient seen and examined. Denies nausea, vomiting, chest pain, shortness of breath or any calf pain. Patient reports: Reports appetite normal, Reports voiding normally, Reports pain well controlled, Reports ambulating normally : doing well Objective - Vital Signs Latest vital signs: Vital Signs Temp Pulse Resp BP 07/24/21 04:00 97.6 F 79 16 131/84 07/23/21 20:04 97.6 F 67 16 133/73 07/23/21 16:00 98.5 F 78 16 136/62 Intake and Output 07/23/21 07/24/21 07/24/21 22:59 06:59 14:59 Other: # Voids 1 1 1 - Exam Lungs: bilateral: normal Chest: Normal S1, Normal S2 Extremities: Present: normal Abdomen: Present: normal appearance, soft. Absent: distention, tenderness Incision: Present: normal, dry, intact Uterus: Present: normal, firm Assessment and Plan (1) Status post repeat low transverse section Current Visit: Yes Status: Acute Code(s): Z98.891 - HISTORY OF UTERINE SCAR FROM PREVIOUS SURGERY SNOMED Code(s): 391436949 Plan: 1. Continue postoperative care 2. Remove breezy
[2021-07-24] MEDS: SENNOSIDES-DOCUSATE SODIUM 1 EACH TAB PO SCH (09:34)
[2021-07-24 13:00] VITALS: BP 118/72; PULSE 78; TEMP 98
== END 2021-07-24 12:53 | disposition home or self-care (01) | DRG 785 ==
LOC: 4FBP 05:45
PROVIDERS: ADMIT Obstetrics & Gynecology; ATTEND Obstetrics & Gynecology
PROC: 0UB70ZZ Excision of Bilateral Fallopian Tubes, Open Approach (ICD-10-PCS; 2021-07-21)
PROC: 0HBJXZZ Excision of Left Upper Leg Skin, External Approach (ICD-10-PCS; 2021-07-21)
PROC: 10D00Z1 Extraction of Products of Conception, Low, Open Approach (ICD-10-PCS; principal; 2021-07-21 08:00)
DX: O34.211 Maternal care for low transverse scar from previous cesarean delivery (principal); O36.5930 Maternal care for other known or suspected poor fetal growth, third trimester, not applicable or unspecified; O99.824 Streptococcus B carrier state complicating childbirth; O69.81X0 Labor and delivery complicated by cord around neck, without compression, not applicable or unspecified; L98.8 Other specified disorders of the skin and subcutaneous tissue; O99.72 Diseases of the skin and subcutaneous tissue complicating childbirth; Z30.2 Encounter for sterilization; Z37.0 Single live birth; Z3A.37 37 weeks gestation of pregnancy; Z86.16 Personal history of COVID-19
CPT/HCPCS: 85025; 86850; 86900; 86901; 88302; 88307